=== PATIENT | female | born 1995 | race Caucasian/White ===

== ENCOUNTER 2018-07-02 13:20 | Outpatient (CLI) | payer OTHER ==
[2018-07-02 18:55] LABS: BASOPHILS % (AUTO) 0.7 %; EOSINOPHILS # (AUTO) 0.1 10^3/uL (0.0-0.7); EOSINOPHILS % (AUTO) 1.6 %; LYMPHOCYTES # (AUTO) 2.5 10^3/uL (1.5-3.5); LYMPHOCYTES % (AUTO) 42.5 %; MEAN CORPUSCULAR HEMOGLOBIN 30.7 pg (27.0-31.0); MEAN CORPUSCULAR HGB CONC 32.9 g/dL (32.0-36.0); MEAN CORPUSCULAR VOLUME 93.3 fL (81.0-99.0); MEAN PLATELET VOLUME 10.1 fL (7.9-10.8); MONOCYTES # (AUTO) 0.5 10^3/uL (0.0-1.0); NEUTROPHILS # (AUTO) 2.8 10^3/uL (1.5-6.6); NEUTROPHILS % (AUTO) 47.2 %; PLT - PLATELET COUNT 228 10^3/uL (130-450); RED BLOOD COUNT 4.55 10^6/uL (4.20-5.40); RED CELL DISTRIBUTION WIDTH 12.5 % (12.0-15.0)
[2018-07-02 19:23] LABS: ALBUMIN 4.2 g/dL (3.2-5.5); ALBUMIN/GLOBULIN RATIO 1.2 (1.0-2.2); ALKALINE PHOSPHATASE 47 IU/L (42-121); ALT ALANINE AMINOTRANSFERASE 14 IU/L (10-60); AST ASPARTATE AMINOTRANSFERASE 19 IU/L (10-42); BILIRUBIN,TOTAL 1.8 mg/dL (0.2-1.0); BUN - BLOOD UREA NITROGEN 10 mg/dL (6-20); CALCIUM 9.1 mg/dL (8.5-10.3); CARBON DIOXIDE - CO2 27 mmol/L (21-32); CHLORIDE 104 mmol/L (101-111); CHOL/HDL RATIO 2.9 (<4.4); CHOLESTEROL 182 mg/dL; CREATININE 0.6 mg/dL (0.4-1.0); GFR - MDRD 124 (>89); GLUCOSE 86 mg/dL (70-100); HDL CHOLESTEROL 63 mg/dL; SODIUM 137 mmol/L (135-145); TOTAL PROTEIN 7.6 g/dL (6.7-8.2)
[2018-07-02 19:45] LABS: LDL CHOLESTEROL,DIRECT 105 mg/dL; LDLD/HDL RATIO 1.7 (<4.4)
== END 2018-07-02 13:21 ==
LOC: LAB.WCP 13:20
PROVIDERS: ATTEND Family Medicine
DX: Z00.00 Encounter for general adult medical examination without abnormal findings (principal)
CPT/HCPCS: 36415; 80053; 80061; 83721; 84443; 85025

== ENCOUNTER 2018-07-09 08:00 | Outpatient (CLI) | payer OTHER ==
[2018-07-10 14:40] LABS: HIV AG/AB 4TH GEN NON-REACTIVE (NON-REACTIVE)
== END 2018-07-09 08:01 | disposition home or self-care (01) ==
LOC: LAB.WCP 08:00
PROVIDERS: ATTEND Family Medicine
DX: Z11.3 Encounter for screening for infections with a predominantly sexual mode of transmission (principal)
CPT/HCPCS: 36415; 81599; 87389

== ENCOUNTER 2019-02-19 08:00 | Outpatient (CLI) | payer OTHER ==
[2019-02-19 13:30] LABS: HCG,QUALITATIVE BLOOD NEGATIVE
[2019-02-19 18:52] LABS: BASOPHILS % (AUTO) 0.7 %; EOSINOPHILS # (AUTO) 0.1 10^3/uL (0.0-0.7); EOSINOPHILS % (AUTO) 1.2 %; LYMPHOCYTES # (AUTO) 2.1 10^3/uL (1.5-3.5); LYMPHOCYTES % (AUTO) 32.3 %; MEAN CORPUSCULAR HEMOGLOBIN 30.3 pg (27.0-31.0); MEAN CORPUSCULAR HGB CONC 33.2 g/dL (32.0-36.0); MEAN CORPUSCULAR VOLUME 91.2 fL (81.0-99.0); MEAN PLATELET VOLUME 9.3 fL (7.9-10.8); MONOCYTES # (AUTO) 0.5 10^3/uL (0.0-1.0); MONOCYTES % (AUTO) 7.1 %; NEUTROPHILS # (AUTO) 3.8 10^3/uL (1.5-6.6); NEUTROPHILS % (AUTO) 58.7 %; PLT - PLATELET COUNT 246 10^3/uL (130-450); WHITE BLOOD COUNT 6.5 x10^3/uL (4.8-10.8)
[2019-02-20 16:25] LABS: HIV AG/AB 4TH GEN NON-REACTIVE (NON-REACTIVE)
[2019-02-21 12:36] LABS: HSV 1 IGG TYPE SPECIFIC AB <0.90 index; HSV 2 IGG TYPE SPECIFIC AB 2.57 index
== END 2019-02-19 08:01 | disposition home or self-care (01) ==
LOC: LAB.WCP 08:00
PROVIDERS: ATTEND Family Medicine
DX: K62.5 Hemorrhage of anus and rectum (principal); Z70.8 Other sex counseling
CPT/HCPCS: 36415; 81599; 84703; 85025; 86592; 86695; 86696; 87389; 87491; 87591

== ENCOUNTER 2019-03-23 11:09 | Day surgery (SDC) | payer OTHER ==
[2019-03-23] MEDS ORDERED: LACTATED RINGERS 1,000 ML IV ONE ×2 (11:50→13:16)
[2019-03-23 12:09] LABS: HCG UR QUAL NEGATIVE
[2019-03-23] MEDS ORDERED: MIDAZOLAM 2 MG/2 ML VIAL IVP ONE (12:12)
[2019-03-23] MEDS ORDERED: fentaNYL 250 MCG/5 ML VIAL IVP ONE (12:12)
[2019-03-23] MEDS ORDERED: PROPOFOL 200 MG/20 ML VIAL IVP ONE (12:50)
[2019-03-23 13:43] VITALS: BP 129/86
== END 2019-03-23 11:10 | disposition home or self-care (01) ==
LOC: SDS 11:09
PROVIDERS: ATTEND Surgery
PROC: 0DBE8ZX Excision of Large Intestine, Via Natural or Artificial Opening Endoscopic, Diagnostic (ICD-10-PCS; 2019-03-23)
PROC: 0DBP8ZX Excision of Rectum, Via Natural or Artificial Opening Endoscopic, Diagnostic (ICD-10-PCS; principal; 2019-03-23 13:00)
DX: K92.89 Other specified diseases of the digestive system (principal); K62.5 Hemorrhage of anus and rectum; I10 Essential (primary) hypertension; F41.9 Anxiety disorder, unspecified
CPT/HCPCS: 45380; 81025; 81599; J3010; J7120

== ENCOUNTER 2019-04-02 12:00 | Outpatient (CLI) | payer OTHER | END 2019-04-02 12:01 | disposition home or self-care (01) | LOC: LAB.WCP 12:00 | PROVIDERS: ATTEND Family Medicine | DX: A56.09 Other chlamydial infection of lower genitourinary tract (principal) | CPT/HCPCS: 87491; 87591 ==

== ENCOUNTER 2019-08-28 10:45 | Outpatient (CLI) | payer OTHER | END 2019-08-28 23:59 | disposition home or self-care (01) | LOC: LAB.WCP 10:45 | PROVIDERS: ATTEND Family Medicine | DX: J02.9 Acute pharyngitis, unspecified (principal) | CPT/HCPCS: 87070; 87077 ==

== ENCOUNTER 2022-12-14 08:00 | Outpatient (CLI) | payer OTHER ==
[2022-12-14 22:52] LABS: BACTERIAL VAGINOSIS DNA NEGATIVE (NEGATIVE); CANDIDA GLABRATA DNA NEGATIVE (NEGATIVE); CANDIDA GROUP DNA POSITIVE (NEGATIVE); CANDIDA KRUSEI DNA NEGATIVE (NEGATIVE); TRICHOMONAS VAGINALIS DNA NEGATIVE (NEGATIVE)
[2022-12-14 23:56] LABS: CHLAMYDIA TRACHOMATIS DNA NEGATIVE (NEGATIVE); NEISSERIA GONORRHOEAE DNA NEGATIVE (NEGATIVE)
== END 2022-12-14 23:59 | disposition home or self-care (01) ==
LOC: LAB.WC 08:00
PROVIDERS: ATTEND Nurse Practitioner
DX: Z11.3 Encounter for screening for infections with a predominantly sexual mode of transmission (principal)
CPT/HCPCS: 81514; 87491; 87591; 87661